=== PATIENT | female | born 1990 | race Caucasian/White ===

== ENCOUNTER → 2016-04-23 | Outpatient (CLI) | payer OTHER ==
[~2016-04-23] MED LIST: CLIN300C10; LEVO50TA PO; ONDA4TAB46 PO; PANT40TA PO
[2016-04-23 11:33] LABS: THYROID STIMULATING HORMONE 0.217 uIu/ml (0.300-4.500)
== END | disposition home or self-care (01) ==
LOC: C.LAB1850 09:25
PROVIDERS: ATTEND Internal Medicine Endocrinology, Diabetes & Metabolism
DX: E03.9 Hypothyroidism, unspecified (principal); E06.3 Autoimmune thyroiditis

== ENCOUNTER → 2016-05-28 | Outpatient (CLI) | payer OTHER | END | disposition home or self-care (01) | LOC: C.LABPBG 11:42 | PROVIDERS: ATTEND Internal Medicine Endocrinology, Diabetes & Metabolism | DX: E03.9 Hypothyroidism, unspecified (principal) ==

== ENCOUNTER → 2016-08-14 | Outpatient (CLI) | payer OTHER ==
[~2016-08-14] MED LIST changes: +AZIT250T PO; +DOXY100C76 PO; +HYDR200T5 PO; +THY/30 PO
[2016-08-14 13:22] LABS: THYROID STIMULATING HORMONE 1.75 uIu/ml (0.300-4.500)
[2016-08-14 16:00] LABS: LYME DISEASE AB IGG NEG (NEG)
[2016-08-14 16:08] LABS: LYME DISEASE AB IGM EQUIVOCAL (NEG)
[2016-08-19 11:07] LABS: 18KDIGG BAND NONREACTIVE (NONREACTIVE); 23KDIGG BAND NONREACTIVE (NONREACTIVE); 23KDIGM BAND REACTIVE (NONREACTIVE); 28KDIGG BAND NONREACTIVE (NONREACTIVE); 30KDIGG BAND NONREACTIVE (NONREACTIVE); 39KDIGG BAND NONREACTIVE (NONREACTIVE); 39KDIGM BAND NONREACTIVE (NONREACTIVE); 41KDIGG BAND REACTIVE (NONREACTIVE); 41KDIGM BAND NONREACTIVE (NONREACTIVE); 45KDIGG BAND NONREACTIVE (NONREACTIVE); 58KDIGG BAND NONREACTIVE (NONREACTIVE); 66KDIGG BAND NONREACTIVE (NONREACTIVE); 93KDIGG BAND NONREACTIVE (NONREACTIVE)
== END | disposition home or self-care (01) ==
LOC: C.LABPBG 08:56
PROVIDERS: ATTEND Internal Medicine Endocrinology, Diabetes & Metabolism
DX: E55.9 Vitamin D deficiency, unspecified (principal); R53.83 Other fatigue; E03.9 Hypothyroidism, unspecified; E06.3 Autoimmune thyroiditis

== ENCOUNTER → 2016-09-18 | Outpatient (CLI) | payer OTHER ==
[2016-09-18 18:23] LABS: LYME DISEASE AB IGG NEG (NEG)
[2016-09-18 18:29] LABS: LYME DISEASE AB IGM POS (NEG)
[2016-09-25 02:56] LABS: 18KDIGG BAND NONREACTIVE (NONREACTIVE); 23KDIGG BAND NONREACTIVE (NONREACTIVE); 23KDIGM BAND REACTIVE (NONREACTIVE); 28KDIGG BAND NONREACTIVE (NONREACTIVE); 30KDIGG BAND NONREACTIVE (NONREACTIVE); 39KDIGG BAND NONREACTIVE (NONREACTIVE); 39KDIGM BAND NONREACTIVE (NONREACTIVE); 41KDIGG BAND NONREACTIVE (NONREACTIVE); 41KDIGM BAND REACTIVE (NONREACTIVE); 45KDIGG BAND NONREACTIVE (NONREACTIVE); 58KDIGG BAND NONREACTIVE (NONREACTIVE); 66KDIGG BAND NONREACTIVE (NONREACTIVE); 93KDIGG BAND NONREACTIVE (NONREACTIVE)
== END | disposition home or self-care (01) ==
LOC: C.LABPBG 11:09
PROVIDERS: ATTEND Physician Assistant Medical
DX: R53.83 Other fatigue (principal)

== ENCOUNTER → 2016-11-06 | Outpatient (CLI) | payer OTHER ==
[2016-11-06 17:34] LABS: C-REACTIVE PROTEIN < 0.29 mg/dl (0-0.29); RHEUMATOID FACTOR < 10.0 U/mL (0-15)
[2016-11-07 08:47] LABS: ESTIMATED AVERAGE GLUCOSE 88 mg/dl; HA1C FLAG Normal (Normal)
== END | disposition home or self-care (01) ==
LOC: C.LABPBG 11:45
PROVIDERS: ATTEND General Practice
DX: R53.82 Chronic fatigue, unspecified (principal); A69.20 Lyme disease, unspecified; A69.29 Other conditions associated with Lyme disease; R63.4 Abnormal weight loss; M79.7 Fibromyalgia; M06.9 Rheumatoid arthritis, unspecified; E55.9 Vitamin D deficiency, unspecified

== ENCOUNTER → 2016-11-24 | Outpatient (CLI) | payer OTHER | END | disposition home or self-care (01) | LOC: C.LABPBG 11:52 | PROVIDERS: ATTEND Internal Medicine Endocrinology, Diabetes & Metabolism | DX: E06.3 Autoimmune thyroiditis (principal) ==

== ENCOUNTER 2016-12-09 09:00 | Emergency (ER) | payer OTHER ==
[~2016-12-09] VITALS: Ht 175.3 cm; Wt 76.4 kg
[~2016-12-09 09:00] MED LIST changes: -AZIT250T PO; -DOXY100C76 PO; -HYDR200T5 PO; -THY/30 PO
[2016-12-09 09:15] VITALS: TEMP 36.3; Ht 175.3 cm; Wt 76.4 kg
[2016-12-09] MEDS ORDERED: SODIUM CHLORIDE 0.9% 1000ML 1,000 ML IV STA (10:17)
[2016-12-09] MEDS ORDERED: DOXY100C76 PO (10:24)
[2016-12-09] MEDS ORDERED: THY/30 PO (10:24)
[2016-12-09] MEDS ORDERED: AZIT250T PO (10:24)
[2016-12-09] MEDS ORDERED: HYDR200T5 PO (10:24)
[2016-12-09] MEDS ORDERED: FENTANYL CITRATE INJ 50 MCG/1 ML 2 ML VIAL IV PRN (10:30)
--- NOTE | 2016-12-09 10:36 | DIAGNOSTIC IMAGING REPORT ---
SINGLE VIEW CHEST CLINICAL HISTORY: Generalized abdominal pain. FINDINGS: An AP, portable, upright chest radiograph is obtained. No prior studies are available for comparison at the time of dictation. The examination is degraded by portable technique and apical lordotic positioning. The cardiomediastinal silhouette is unremarkable. The lungs and pleural spaces are clear. No pneumothorax is seen. The bony thorax is grossly intact. IMPRESSION: No active disease in the chest. Electronically signed by: Perry Molina M.D. 12/09/2016 10:35 AM Dictated Date/Time: 12/09/2016 10:34 AM
[2016-12-09 11:15] LABS: BASO % 0.1 %; BASO ABS # 0.01 K/uL (0-0.2); COMPLETE YES; EOS % 0.1 %; HEMATOCRIT 40.8 % (37-47); IG% 0.1 %; LYMPH ABS # 0.74 K/uL (1.2-3.4); MEAN CELL VOLUME 93.2 fL (80-100); MEAN CORPUSCULAR HEMOGLOBIN 31.1 pg (25-34); MEAN CORPUSCULAR HGB CONC 33.3 g/dl (32-36); MEAN PLATELET VOLUME 10.6 fL (7.4-10.4); MONO % 9.6 %; NEUT % 82.1 %; PLATELET COUNT 178 K/uL (130-400); RED BLOOD COUNT 4.38 M/uL (4.2-5.4); WHITE BLOOD COUNT 9.28 K/uL (4.8-10.8)
[2016-12-09 11:23] LABS: BUN/CREATININE RATIO 21.5 (10-20); CALCIUM 9.3 mg/dl (8.5-10.1); CREATININE 0.88 mg/dl (0.60-1.20); POTASSIUM 3.9 mmol/L (3.5-5.1)
[2016-12-09 11:29] VITALS: BP 120/84; PULSE 73; O2SAT 99
[2016-12-09 11:51] LABS: URINE APPEARANCE CLEAR (CLEAR); URINE BILIRUBIN NEG (NEG); URINE COLOR DK YELLOW; URINE EPITHELIAL CELL AUTO >30 /lpf (0-5); URINE NITRITE NEG (NEG); URINE SPECIFIC GRAVITY 1.029 (1.000-1.030); UROBILINOGEN NEG (NEG)
[2016-12-09 11:52] LABS: MANUAL MICROSCOPIC REQUIRED? NO; REVIEW REQ? YES
--- NOTE | 2016-12-09 12:01 | EMERGENCY ROOM VISIT NOTE ---
History Report prepared by Joi: Jacinta Marks Under the Supervision of: Dr. Brown Verde D.O. First contact with patient: 09:50 Chief Complaint: ABDOMINAL PAIN Stated Complaint: STOMACH PAIN Nursing Triage Summary: having abdominal pain and back pain. I feel like I have to pee but I cant History of Present Illness The patient is a 26 year old female who presents to the Emergency Room with complaints of persistent diffuse, generalized abdominal pain that began three hours ago. She currently rates her discomfort as an 8/10 in severity. The patient states that she went for a run this morning and when she got back she noticed diffuse abdominal pain. The patient notes that she ran less than she normally does, stating that she runs over five miles per day. She states that her vision became blurry and she fell to the floor. The patient states that her roommate came and picked her up off the floor and brought the patient to the emergency department for further work up and treatment. She states that she developed diarrhea, but denies any vomiting. The patient states that she feels that she needs to urinate, but states that she cannot. She reports that she is currently undergoing treatment for Lyme Disease, noting that she is on Plaquenil, Doxycycline, and Azithromycin. The patient states that her pain radiates into her pelvis and into her back. She denies any chest pain or shortness of breath. The patient reports a history of hyperthyroidism. Source of History: patient Onset: three hours ago Position: abdomen (diffuse, generalized) Symptom Intensity: 8/10 Timing: other (persistent) Associated Symptoms: + diarrhea, No chest pain, No SOB, No vomiting Note: Associated Symptoms: blurry vision Review of Systems See HPI for pertinent positives & negatives. A total of 10 systems reviewed and were otherwise negative. Past Medical & Surgical Medical Problems: (1) H/O colonoscopy (2) H/O endoscopy (3) Hyperthyroidism (4) Lyme disease Family History Cancer Heart disease Hypertension Social History Smoking Status: Never Smoker Smokeless Tobacco Use: No Alcohol Use: occasionally Housing Status: lives with roommate Occupation Status: employed Current/Historical Medications Scheduled Azithromycin (Zithromax), 250 MG PO BID Doxycycline Monohydrate (Monodox), 100 MG PO BID Hydroxychloroquine Sulfate (Plaquenil), 100 MG PO BID Thyroid ([place] Thyroid), 60 MCG PO DAILY Allergies Coded Allergies: No Known Allergies (Unverified , 10/11/17) Physical Exam Vital Signs Date Time Temp Pulse Resp B/P (MAP) Pulse Ox O2 Delivery O2 Flow Rate FiO2 12/09/16 11:29 73 18 120/84 99 Room Air 12/09/16 09:15 36.3 80 18 139/43 96 Room Air Physical Exam CONSTITUTIONAL/VITAL SIGNS: Reviewed / noted above. GENERAL: Non-toxic in appearance. INTEGUMENTARY: Warm, dry, and [place]. HEAD: Normocephalic. EYES: without scleral icterus or trauma. ENT/OROPHARYNX: clear and moist. LYMPHADENOPATHY/NECK: Is supple without lymphadenopathy or meningismus. RESPIRATORY: Lungs clear and equal. CARDIOVASCULAR: Regular rate and rhythm. GI/ABDOMEN: Soft and mild diffuse tenderness on the abdomen. No organomegaly or pulsatile mass. No rebound or guarding. Normal bowel sounds. EXTREMITIES: Warm and well perfused. BACK: Tenderness to palpation of the lumbar musculature, right greater than left , right CVA tenderness NEUROLOGICAL: Intact without focal deficits. PSYCHIATRIC: normal affect. MUSCULOSKELETAL: Normally developed with good muscle tone. Medical Decision & Procedures ER Provider Diagnostic Interpretation: X ray results and stated below per my interpretation and radiology interpretation. SINGLE VIEW CHEST CLINICAL HISTORY: Generalized abdominal pain. FINDINGS: An AP, portable, upright chest radiograph is obtained. No prior studies are available for comparison at the time of dictation. The examination is degraded by portable technique and apical lordotic positioning. The cardiomediastinal silhouette is unremarkable. The lungs and pleural spaces are clear. No pneumothorax is seen. The bony thorax is grossly intact. IMPRESSION: No active disease in the chest. Electronically signed by: Perry Molina M.D. 12/09/2016 10:35 AM Dictated Date/Time: 12/09/2016 10:34 AM Laboratory Results 12/09/16 10:50 Red Blood Count 4.38, Mean Corpuscular Volume 93.2, Mean Corpuscular Hemoglobin 31.1, Mean Corpuscular Hemoglobin Concent 33.3, Mean Platelet Volume 10.6, Neutrophils (%) (Auto) 82.1, Lymphocytes (%) (Auto) 8.0, Monocytes (%) (Auto) 9.6, Eosinophils (%) (Auto) 0.1, Basophils (%) (Auto) 0.1, Neutrophils # (Auto) 7.62, Lymphocytes # (Auto) 0.74, Monocytes # (Auto) 0.89, Eosinophils # (Auto) 0.01, Basophils # (Auto) 0.01 12/09/16 10:50 Test 12/09/16 10:50 12/09/16 11:31 White Blood Count 9.28 K/uL (4.8-10.8) Red Blood Count 4.38 M/uL (4.2-5.4) Hemoglobin 13.6 g/dL (12.0-16.0) Hematocrit 40.8 % (37-47) Mean Corpuscular Volume 93.2 fL (80-100) Mean Corpuscular Hemoglobin 31.1 pg (25-34) Mean Corpuscular Hemoglobin Concent 33.3 g/dl (32-36) Platelet Count 178 K/uL (130-400) Mean Platelet Volume 10.6 fL (7.4-10.4) Neutrophils (%) (Auto) 82.1 % Lymphocytes (%) (Auto) 8.0 % Monocytes (%) (Auto) 9.6 % Eosinophils (%) (Auto) 0.1 % Basophils (%) (Auto) 0.1 % Neutrophils # (Auto) 7.62 K/uL (1.4-6.5) Lymphocytes # (Auto) 0.74 K/uL (1.2-3.4) Monocytes # (Auto) 0.89 K/uL (0.11-0.59) Eosinophils # (Auto) 0.01 K/uL (0-0.5) Basophils # (Auto) 0.01 K/uL (0-0.2) RDW Standard Deviation 42.7 fL (36.4-46.3) RDW Coefficient of Variation 12.6 % (11.5-14.5) Immature Granulocyte % (Auto) 0.1 % Immature Granulocyte # (Auto) 0.01 K/uL (0.00-0.02) Anion Gap 6.0 mmol/L (3-11) Est Creatinine Clear Calc Drug Dose 99.5 ml/min Estimated GFR () 103.6 Estimated GFR (Non- 89.4 BUN/Creatinine Ratio 21.5 (10-20) Calcium Level 9.3 mg/dl (8.5-10.1) Total Bilirubin 0.7 mg/dl (0.2-1) Direct Bilirubin 0.2 mg/dl (0-0.2) Aspartate Amino Transf (AST/SGOT) 13 U/L (15-37) Alanine Aminotransferase (ALT/SGPT) 19 U/L (12-78) Alkaline Phosphatase 50 U/L (45-117) Total Protein 8.1 gm/dl (6.4-8.2) Albumin 4.2 gm/dl (3.4-5.0) Lipase 122 U/L (73-393) Urine Color DK YELLOW Urine Appearance CLEAR (CLEAR) Urine pH 5.0 (4.5-7.5) Urine Specific [place] 1.029 (1.000-1.030) Urine Protein 1+ (NEG) Urine Glucose (UA) NEG (NEG) Urine Ketones NEG (NEG) Urine Occult Blood NEG (NEG) Urine Nitrite NEG (NEG) Urine Bilirubin NEG (NEG) Urine Urobilinogen NEG (NEG) Urine Leukocyte Esterase NEG (NEG) Urine WBC (Auto) 1-5 /hpf (0-5) Urine RBC (Auto) 0-4 /hpf (0-4) Urine Hyaline Casts (Auto) 5-10 /lpf (0-5) Urine Epithelial Cells (Auto) >30 /lpf (0-5) Urine Bacteria (Auto) NEG (NEG) Urine Pathogenic Casts 0-3 GRANULAR CASTS /lpf (0) Urine Yeast (Auto) BUDDING (NONE PRSENT) Urine Test NEG (NEG) Laboratory results as stated above per my review. Medications Administered Medications (Trade) Dose Ordered Sig/Angela Route Start Time Stop Time Status Last Admin Dose Admin Sodium Chloride 1,000 ml @ 999 mls/hr Q1H1M STAT IV 12/09/16 10:17 12/09/16 11:17 DC 12/09/16 10:17 999 MLS/HR ED Course 0953: Previous medical records were reviewed. The patient was evaluated in room B6. A complete history and physical examination was performed by the medical student. 1017: Ordered Sodium Chloride 1000 ml @ 999 mls/hr IV. 1020: Previous medical records were reviewed. The patient was evaluated in room B6. A complete history and physical examination was performed. 1202: I reevaluated the patient and she is resting comfortably. I discussed the exam findings with her and I discussed the treatment plan. She verbalized complete understanding and agreement. She is ready to go home. Medical Decision Differential considered: pancreatitis, hepatitis, or acute cholecystitis, AAA, UTI, pyelonephritis, kidney stones, appendicitis, diverticulitis, shingles, bowel obstruction mesenteric ischemia, intussusception, hernia, ovarian torsion , ruptured ovarian cyst, ectopic , . This is a 18-year-old female who presents to the ED with a chief complaint of abdominal discomfort. She reports some generalized abdominal discomfort. The patient states that it started suddenly after she came home from a running and was taking a shower. She states that her vision became blurry and she developed a sharp pain in her low back and low abdomen. She reports a little bit of diarrhea this morning. She had a normal bowel movement yesterday. She denies any other significant symptoms. Her vital signs are normal. Her physical exam reveals some tenderness to the back muscles especially the right side in her low back region where there appears to be some muscle tightness. She had some right-sided CVA tenderness but I think this is related to the tenderness in her musculature on palpation. Abdomen is soft and mildly tender diffusely. CBC is normal, complete metabolic panel is unremarkable, BUN is 19, lipase is normal, urine did not show infection. test was negative. The patient was told the results. She is felt to be stable for discharge and outpatient follow-up. Her symptoms seem to be mostly muscular. She could have a diarrheal illness as well. She did state she was feeling better. Medication Reconcilliation Current Medication List: was personally reviewed by me Impression Primary Impression: Diffuse abdominal pain Additional Impression: Low back pain Scribe Attestation The scribe's documentation has been prepared under my direction and personally reviewed by me in its entirety. I confirm that the note above accurately reflects all work, treatment, procedures, and medical decision making performed by me. Departure Information Dispostion Home / Self-Care Referrals Rae Regan P.A. (PCP) Forms HOME CARE DOCUMENTATION FORM, IMPORTANT VISIT INFORMATION Patient Instructions Abdominal Pain, My [facility] Additional Instructions Follow-up with your doctor for further care and evaluation in 1-2 days. Return to the emergency department for worsening or new symptoms or any concerns. You have been examined and treated today on an emergency basis only. This is not a substitute for, or an effort to provide, complete comprehensive medical care. It is impossible to recognize and treat all injuries or illnesses in a single emergency department visit. It is therefore important that you follow up closely with your doctor. Call as soon as possible for an appointment. Problem Qualifiers
[2016-12-09 12:19] LABS: URINE PATH CASTS 0-3 GRANULAR CASTS /lpf (0)
[2016-12-09 12:21] LABS: ZZUR CULT IF INDIC CLEAN CATCH YES
== END 2016-12-09 12:32 | disposition home or self-care (01) ==
LOC: C.EDB 09:01
DX: R10.9 Unspecified abdominal pain (principal); M54.5 Low back pain; E05.90 Thyrotoxicosis, unspecified without thyrotoxic crisis or storm; Z86.19 Personal history of other infectious and parasitic diseases; Z80.9 Family history of malignant neoplasm, unspecified; Z82.49 Family history of ischemic heart disease and other diseases of the circulatory system; Z79.899 Other long term (current) drug therapy

== ENCOUNTER → 2016-12-18 | Outpatient (CLI) | payer OTHER ==
[~2016-12-18] MED LIST changes: +AZIT250T PO; -CLIN300C10; +DOXY100C76 PO; +HYDR200T5 PO; -LEVO50TA PO; -ONDA4TAB46 PO; -PANT40TA PO; +THY/30 PO
[2016-12-18 17:04] LABS: ALT/SGPT 16 U/L (12-78); BLOOD UREA NITROGEN 14 mg/dl (7-18); BUN/CREATININE RATIO 16.3 (10-20); CALCIUM 9.1 mg/dl (8.5-10.1); CARBON DIOXIDE 29 mmol/L (21-32); CHLORIDE 104 mmol/L (98-107); CREATININE 0.86 mg/dl (0.60-1.20); GLUCOSE 92 mg/dl (70-99); POTASSIUM 3.8 mmol/L (3.5-5.1); SODIUM 138 mmol/L (136-145)
[2016-12-18 17:06] LABS: ALB/GLOB RATIO 1.1 (0.9-2); ALKALINE PHOSPHATASE 46 U/L (45-117); AST/SGOT 14 U/L (15-37)
[2016-12-18 19:57] LABS: BASO % 0.2 %; BASO ABS # 0.01 K/uL (0-0.2); COMPLETE YES; EOS % 2.3 %; HEMATOCRIT 38.6 % (37-47); IG% 0.2 %; LYMPH % 36.1 %; LYMPH ABS # 1.73 K/uL (1.2-3.4); MEAN CELL VOLUME 93.7 fL (80-100); MEAN CORPUSCULAR HEMOGLOBIN 30.8 pg (25-34); MEAN CORPUSCULAR HGB CONC 32.9 g/dl (32-36); MONO % 10.9 %; NEUT % 50.3 %; PLATELET COUNT 214 K/uL (130-400); RED BLOOD COUNT 4.12 M/uL (4.2-5.4); WHITE BLOOD COUNT 4.79 K/uL (4.8-10.8)
== END | disposition home or self-care (01) ==
LOC: C.LABPBG 14:59
PROVIDERS: ATTEND General Practice
DX: R53.82 Chronic fatigue, unspecified (principal); A69.29 Other conditions associated with Lyme disease

== ENCOUNTER → 2017-05-17 | Outpatient (CLI) | payer OTHER ==
[2017-05-17 13:10] LABS: BASO % 0.5 %; BASO ABS # 0.02 K/uL (0-0.2); EOS % 1.2 %; EOS ABS # 0.05 K/uL (0-0.5); HEMATOCRIT 38.7 % (37-47); HEMOGLOBIN 13.1 g/dL (12.0-16.0); IG# 0.01 K/uL (0.00-0.02); LYMPH % 29.9 %; MEAN CELL VOLUME 94.4 fL (80-100); MEAN CORPUSCULAR HGB CONC 33.9 g/dl (32-36); MEAN PLATELET VOLUME 11.3 fL (7.4-10.4); MONO ABS # 0.36 K/uL (0.11-0.59); NEUT % 59.2 %; NEUT ABS # 2.37 K/uL (1.4-6.5); PLATELET COUNT 179 K/uL (130-400); RED CELL DISTRIBUTION WIDTH CV 12.6 % (11.5-14.5); RED CELL DISTRIBUTION WIDTH SD 43.4 fL (36.4-46.3); WHITE BLOOD COUNT 4.01 K/uL (4.8-10.8)
[2017-05-17 14:04] LABS: ALBUMIN 3.8 gm/dl (3.4-5.0); TOTAL PROTEIN 7.4 gm/dl (6.4-8.2)
== END | disposition home or self-care (01) ==
LOC: C.LABPBG 09:20
PROVIDERS: ATTEND General Practice
DX: R53.82 Chronic fatigue, unspecified (principal); A69.29 Other conditions associated with Lyme disease; E55.9 Vitamin D deficiency, unspecified

== ENCOUNTER → 2017-06-01 | Outpatient (CLI) | payer OTHER | END | disposition home or self-care (01) | LOC: C.LABPBG 08:32 | PROVIDERS: ATTEND Internal Medicine Endocrinology, Diabetes & Metabolism | DX: E03.9 Hypothyroidism, unspecified (principal) ==